=== PATIENT | female | born 1960 | race African-American/Black ===

== ENCOUNTER 2018-05-11 14:29 | Outpatient (CLI) | payer OTHER | END 2018-05-11 14:30 | disposition home or self-care (01) | LOC: BICMAMMO 14:29 → EDSTATUS 14:30 → BICMAMMO 14:30 | PROVIDERS: ATTEND Nurse Practitioner Family | DX: R92.8 Other abnormal and inconclusive findings on diagnostic imaging of breast (principal); N63.10 Unspecified lump in the right breast, unspecified quadrant; Z80.3 Family history of malignant neoplasm of breast | CPT/HCPCS: G0279 ==